=== PATIENT | female | born 1985 | race Caucasian/White ===

== ENCOUNTER 2016-12-30 06:53 | Day surgery (SDC) | payer OTHER ==
[~2016-12-30] VITALS: Ht 152.4 cm; Wt 49.4 kg
[2016-12-30] VITALS (16 sets, daily range): BP systolic 104–123; BP diastolic 56–79; PULSE 62–91; RESP 14–18; Ht 152.4 cm; Wt 49.4 kg
[2016-12-30] MEDS ORDERED: SOD CHLORIDE 0.9% 1,000 ML IV ONE (07:00)
[2016-12-30] MEDS ORDERED: CEFAZOLIN 2 GM/50 ML (PMX) 50 ML IVPB ONE (07:00)
[2016-12-30] MEDS ORDERED: TRAM-40 PO (07:41)
[2016-12-30] MEDS ORDERED: LIDOCAINE 2% (SDV) 5 ML INJ ONE (09:04)
[2016-12-30] MEDS ORDERED: FENTAnyl 50 MCG/ML VIAL ONE (09:04)
[2016-12-30] MEDS ORDERED: ROCURONIUM 50 MG INJ ONE (09:04)
[2016-12-30] MEDS ORDERED: MIDAZOLAM 1 MG/ML 2 ML INJ ONE (09:04)
[2016-12-30] MEDS ORDERED: SUCCINYLCHOLINE CHLORIDE 100 MG/5 ML SYG IV ONE (09:04)
[2016-12-30] MEDS ORDERED: PROPOFOL 20 ML ONE (09:04)
[2016-12-30] MEDS ORDERED: BUPIVACAINE 0.25% (MPF) 30 ML INJ ONE (09:08)
[2016-12-30] MEDS ORDERED: PHENYLephrine (100 MCG/ML) 5ML SYG ONE (09:13)
[2016-12-30] MEDS ORDERED: ONDANSETRON 4 MG INJ ONE (09:13)
[2016-12-30] MEDS ORDERED: DEXAMETHASONE 4 MG/ML 1 ML INJ ONE (09:13)
[2016-12-30] MEDS ORDERED: CEFAZOLIN 1 GM INJ ONE (09:16)
[2016-12-30] MEDS ORDERED: GLYCOPYRROLATE 0.4 MG INJ ONE (09:26)
[2016-12-30] MEDS ORDERED: NEOSTIGMINE 3 MG/3 ML SYRINGE ONE (09:26)
[2016-12-30] MEDS ORDERED: MEPERIDINE 25 MG INJ IV PRN (09:30)
[2016-12-30] MEDS ORDERED: FENTAnyl 50 MCG/ML VIAL IV PRN (09:30)
[2016-12-30] MEDS ORDERED: PROCHLORPERAZINE 10 MG INJ IV PRN (09:30)
[2016-12-30] MEDS ORDERED: DIPHENHYDRAMINE 50 MG INJ IV PRN (09:30)
[2016-12-30] MEDS ORDERED: OXYCODONE/ACETAMINOPHEN (5/325) TAB PO PRN (09:30)
[2016-12-30] MEDS ORDERED: ONDANSETRON 4 MG INJ IV PRN (09:30)
[2016-12-30] MEDS ORDERED: HYDROmorphONE (0.2 MG/ML) 10ML SYG IV PRN (09:30)
[2016-12-30] MEDS ORDERED: KETOROLAC 30 MG INJ ONE (09:38)
--- NOTE | 2016-12-30 09:56 | OPR ---
DATE OF OPERATION: 12/30/2016 INDICATION: This is a 31-year-old female with symptomatic gallstones. She requests surgical excisi on of her gallbladder. The risks, alternatives, benefits and personnel were discussed with the la ent. The patient expressed understanding and consented to the operation. PREOPERATIVE DIAGNOSIS: Symptomatic gallstones. POSTOPERATIVE DIAGNOSIS: Symptomatic gallstones. OPERATION: Laparoscopic cholecystectomy. SURGEON: Ying Espinosa MD SPECIMEN: Gallbladder. COMPLICATIONS: None. ANESTHESIA: General. PROCEDURE: The patient was taken to the OR, prepped and draped in the usual sterile fashion. A ramesh gical timeout was performed. IV antibiotics were given. An infraumbilical incision was made transv ersely with a 15 blade. Dissection cautery was carried down to the fascia, which was divided with a curved Gal[place] scissors. An 0 Vicryl U-stitch was placed into the fascia. The balloon Antonieta trocar was introduced. Pneumoperitoneum was established. A midepigastric 12-mm optical trocar and right u pper quadrant and right upper flank 5-mm optical trocars were placed under direct visualization. Up on initial inspection there were adhesions to the gallbladder, which were taken down bluntly. The c ystic duct was identified and the critical view was established. The cystic duct was divided using a 35-mm [place] vascular load stapler. The cystic artery was divided using a 35-mm [place] vascular load stapler. Both staple lines were reinforced with clips. The gallbladder was taken off the gal lbladder bed. There was good hemostasis. The gallbladder was retrieved using an EndoCatch bag. Po rts were removed under direct visualization. 0 Vicryl U-stitch was used to tie down. The skin was closed using skin arash. Local anesthesia was injected. Dry dressings were applied. Dictated By: YING SINCLAIR/BERNARD Conf#: [id number] DID#: [id number]
[2016-12-30] MEDS ORDERED: HYDROCODONE/APAP (5/325) TAB PO ONE (10:00)
== END 2016-12-30 12:05 | disposition home or self-care (01) ==
LOC: SDS 06:53
PROVIDERS: ATTEND Surgery
DX: K81.1 Chronic cholecystitis (principal)
CPT/HCPCS: 47562; 84703; 88304; J0330; J0690; J1100; J1885; J2250; J2370; J2405; J2710; J3010; Z7512; Z7610